=== PATIENT | male | born 2005 | race African-American/Black ===

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

== ENCOUNTER 2025-03-28 21:45 | Emergency (ER) | payer OTHER ==
[~2025-03-28] VITALS: Ht 185.4 cm; Wt 87.0 kg
[2025-03-28 21:55] VITALS: BP 157/80; PULSE 108; RESP 18; TEMP 36.7; O2SAT 98
== END 2025-03-28 21:55 | disposition left against medical advice (07) ==
LOC: ER 21:45
DX: R46.89 Other symptoms and signs involving appearance and behavior (principal); Z53.21 Procedure and treatment not carried out due to patient leaving prior to being seen by health care provider